=== PATIENT | male | born 1930 | race Caucasian/White ===

== ENCOUNTER 2016-10-16 06:11 | Day surgery (SDC) | payer OTHER ==
[~2016-10-16 06:11] MED LIST: ceFAZolin 2 GM/DEXTROSE 100 ML IV ONE
[2016-10-16] MEDS ORDERED: LR 1,000 ML IV ONE (06:30)
[2016-10-16] MEDS ORDERED: LIDOCAINE 1% 5 ML SDV ID PRN (06:30)
[2016-10-16] MEDS ORDERED: BUPIVACAINE 0.5% 30 ML SDV ONE (06:53)
[2016-10-16] MEDS ORDERED: MIDAZOLAM 2 MG/2 ML VIAL ONE (07:05)
[2016-10-16] MEDS ORDERED: fentaNYL 100 MCG/2 ML INJ ONE (07:21)
[2016-10-16] MEDS ORDERED: PROPOFOL 200 MG/20 ML VIAL ONE (07:24)
[2016-10-16] MEDS ORDERED: LABETALOL HCL 5 MG/ML 20 ML MDV ONE (07:28)
[2016-10-16] MEDS ORDERED: LIDOCAINE 1% 30 ML SDV ONE (07:35)
[2016-10-16] MEDS ORDERED: ONDANSETRON 4 MG/2 ML VIAL ONE (07:56)
--- NOTE | 2016-10-16 08:49 | GOP ---
DATE OF OPERATION: 10/16/2016 SURGEON: Mallory Tovar MD RECYCLING COORDINATOR: Fany Mclaughlin, SHIRAZ ANESTHESIA: Monitored anesthesia care with sedation. 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 PROCEDURE PERFORMED: Debridement of skin and soft tissue, left lower extremity, and wound VAC place ment. FINDINGS: Wound measures 9.5 x 5.5 x 1 cm. The tendon or bone were not exposed. SPECIMENS: None. ESTIMATED BLOOD LOSS: 20 cc. INDICATIONS: The patient is an 85-year-old man who fell. He had a large hematoma. This [facility]brid [facility], however, it was found that it tracked more extensively than anticipa hali. DESCRIPTION OF PROCEDURE: The patient was brought into the operating room, placed supine on the tab le, and monitored anesthesia care with sedation was performed. Left leg was prepped with Betadine a nd draped in the usual sterile fashion. I infiltrated the areas with 20 cc of 0.5% Marcaine mixed w ith 1% lidocaine. I excised all the nonviable tissue and I evacuated the hematoma. The wound measu red 9.5 x 5.5 x 1 cm. Hemostasis was achieved. A wound VAC was placed. He was awakened in the ope rating room and transferred to the PACU in stable condition. /[id number]/MODL
[2016-10-16] MEDS ORDERED: HYDROCODONE/APAP 5/325 TAB ONE (08:57)
== END 2016-10-16 10:20 | disposition home or self-care (01) ==
LOC: FPAT 06:11 → FSGY 10:20
PROVIDERS: ATTEND Surgery
PROC: 0JBP0ZZ Excision of Left Lower Leg Subcutaneous Tissue and Fascia, Open Approach (ICD-10-PCS; principal; 2016-10-16 07:15)
DX: S81.802A Unspecified open wound, left lower leg, initial encounter (principal); W19.XXXA Unspecified fall, initial encounter; W22.8XXA Striking against or struck by other objects, initial encounter
CPT/HCPCS: J0690; J2250; J2405; J2704; J3010; J3490

== ENCOUNTER 2016-10-18 17:41 | Emergency (ER) | payer OTHER ==
[2016-10-18 17:54] VITALS: BP 146/80; PULSE 79; RESP 18; TEMP 97.2; O2SAT 94
--- NOTE | 2016-10-18 18:01 | EDPHY ---
H & P Time Seen by Provider: 10/18/16 17:58 HPI/ROS: CHIEF COMPLAINT: Wound check on left leg. HISTORY OF PRESENT ILLNESS: The patient is an 85-[facility] patient. He had a mechanical vacuum pump on his left leg that stopped last night and he presents for wound reevaluation. He was told to keep the wound dry but noticed that it was wet and weeping. He initially received the wound when he tripped and fell at home. He denies fever. Past Medical/Surgical History: Bilateral hip replacements, leg leg wound I&D, lumbar surgery. 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 Smoking Status: Former smoker Physical Exam: General Appearance: Alert, pleasant Skin: Warm and dry, no erythema Extremities: Left lower extremity-there is an open wound on the lateral aspect of the lower leg with a dressing in place Vascular: pedal pulses 1+ Constitutional: Initial Vital Signs Temperature (C) 36.2 C 10/18/16 17:47 Heart Rate 79 10/18/16 17:47 Respiratory Rate 18 10/18/16 17:47 Blood Pressure 146/80 H 10/18/16 17:47 O2 Sat (%) 94 10/18/16 17:47 O2 Delivery Mode Room Air Allergies/Adverse Reactions: No Known Allergies Allergy (Verified 10/18/16 17:54) Home Medications: Medication Instructions Recorded Amlodipine Besylate 10/15/16 Aspirin 10/15/16 Flonase Nasal [place] 10/15/16 Herbals/Supplements -Info Only 10/15/16 Losartan Potassium 10/15/16 Simvastatin 10/15/16 Tamsulosin HCl 10/15/16 Medical Decision Making ED Course/Re-evaluation: The patient's wound was changed to a wet to dry dressing. He understands to follow up with the [facility] tomorrow. Departure - Departure Disposition: Home, Routine, Self-Care Clinical Impression: Visit for wound check Condition: Good Instructions: Acute Wound Care (ED) Additional Instructions: Call the wound clinic tomorrow to set up an appointment. Inform her you were a patient in the ER today and your wound vac has stopped working. Return to the emergency department if you experience any serious worsening of condition. Referrals: [facility] [Clinic] - As per Instructions Report Scribed for: Ruth Gutierrez Report Scribed by: Sarbjit Azevedo Date of Report: 10/18/16 Time of Report: 17:59 Physician Review and Approval Statement: 10/18/16 17:59 Portions of this note were transcribed by a medical transcription radiology. I personally performed a history, physical exam, medical decision making, and confirmed accuracy of information the transcribed note.
== END 2016-10-18 19:20 | disposition home or self-care (01) ==
DX: Z48.01 Encounter for change or removal of surgical wound dressing (principal); Z79.82 Long term (current) use of aspirin; Z87.891 Personal history of nicotine dependence

== ENCOUNTER 2016-12-25 10:37 | Inpatient (IN) | payer OTHER ==
[~2016-12-25 10:37] MED LIST changes: +BUPIVACAINE 0.5% 30 ML SDV ONE; +MINERAL OIL 10 ML VIAL TP ONE; +THROMBIN (BOVINE) 20,000 UNIT SPRAY TP ONE
[2016-12-25] MEDS ORDERED: LIDOCAINE 1% 2 ML INJ ONE (11:06)
[2016-12-25] MEDS ORDERED: CEFAZOLIN 2 GM/DEXTROSE/100 ML BAG IV ONE (11:06)
[2016-12-25] MEDS ORDERED: LIDOCAINE 1% 5 ML SDV ID PRN (12:17)
[2016-12-25] MEDS ORDERED: LR 1,000 ML IV ONE (12:17)
[2016-12-25] MEDS ORDERED: MIDAZOLAM 2 MG/2 ML VIAL ONE (12:38)
--- NOTE | 2016-12-25 12:38 | POSTOPPROG ---
Post Op Note Date of Operation: 12/25/16 Surgeon: Mallory Tovar Drapery Examiner: dipika Anesthesiologist: will Anesthesia: GET(General Endotracheal) Pre-op Diagnosis: Traumatic wound LLE Post-op Diagnosis: same Indication: 85yo M with LLE traumatic wound with delayed wound healing Procedure: STSG with wound vac placement Findings: wound measurements 7 x 5cm Inf/Abcess present in the surg proc area at time of surgery?: Yes Depth: Superfical (Skin SQ) EBL: Minimal Drains: Wound Vac
--- NOTE | 2016-12-25 12:39 | CPEKG ---
Heart Rate: 79 RR Interval: 759 P-R Interval: 204 QRSD Interval: 104 QT Interval: 384 QTC Interval: 441 P Moran: 49 QRS Moran: -41 T Wave Moran: 53 EKG Severity - ABNORMAL ECG - EKG Impression: SINUS RHYTHM EKG Impression: PAIRED ATRIAL PREMATURE COMPLEXES EKG Impression: LEFT AXIS DEVIATION EKG Impression: NONSPECIFIC T ABNORMALITIES, LATERAL LEADS Electronically Signed By: Avila Paulson 25-Dec-2016 16:26:30
[2016-12-25] MEDS ORDERED: fentaNYL 100 MCG/2 ML INJ ONE ×2 (12:42)
[2016-12-25] MEDS ORDERED: PROPOFOL 200 MG/20 ML VIAL ONE (12:43)
[2016-12-25] MEDS ORDERED: LIDOCAINE 2% 5 ML SDV ONE (12:44)
[2016-12-25] MEDS ORDERED: LABETALOL HCL 50 MG/10 ML SYR ONE (13:43)
--- NOTE | 2016-12-25 13:49 | GOP ---
[f rep st] OPERATIVE REPORT DATE OF OPERATION: 12/25/2016 SURGEON: Mallory Tovar MD REVENUE SETTLEMENTS ADMINISTRATOR: SHIRAZ Ojeda ANESTHESIA: General. ANESTHESIOLOGIST: Dr. Ramsey Blanchard PREOPERATIVE DIAGNOSIS: Traumatic left lower extremity wound. POSTOPERATIVE DIAGNOSIS: Traumatic left lower extremity wound. PROCEDURE PERFORMED: Debridement skin, soft tissue to the level of subcutaneous tissues measuring 7 x 5 x 0 cm, and split-thickness skin graft. FINDINGS: healthy tissue SPECIMENS: None. ESTIMATED BLOOD LOSS: 10 cc. INDICATIONS: The patient is an 85-year-old man who injured his leg. We have performed debridement and have been applying EpiFix. He is now ready for skin grafting. DESCRIPTION OF PROCEDURE: The patient was brought into the operating room, placed supine on the table, and general anesthesia was administered. His left lower leg was prepped and draped in the usual sterile fashion. I debrided the skin, soft tissue on his left lower extremity with a knife. It measured 7 x 5 x 0 cm. I then placed mineral oil on his left upper thigh, obtained a skin graft at 1:12,000th of an inch. I performed hand pie crusting and I placed this on the lower extremity wound. It was stapled into place. An epinephrine soaked sponge was placed on the donor site. After the skin graft was adhered by john, Adaptic Touch and a wound VAC was placed. Hemostasis was achieved on the donor site with electrocautery. Mepilex transfer and a Tegaderm was placed. He was awakened in the operating room, extubated, transferred to PACU in stable condition. /[id number]/MODL MTDD
[2016-12-25] MEDS ORDERED: hydrALAZINE 20 MG/ML VIAL ONE (14:13)
[2016-12-25] MEDS ORDERED: ACETAMINOPHEN 325 MG TAB PO PRN (16:45)
[2016-12-25] MEDS ORDERED: diphenhydrAMINE 25 MG CAP PO PRN (16:45)
[2016-12-25] MEDS ORDERED: ONDANSETRON DISINTEGRATING 4 MG TAB PO PRN (16:45)
[2016-12-25] MEDS ORDERED: ONDANSETRON 4 MG/2 ML VIAL IVP PRN (16:45)
[2016-12-25] MEDS ORDERED: HYDROmorphONE/DILAUDID 1 MG/ML SYR IVP PRN (16:46)
[2016-12-25] MEDS: HYDROCODONE/APAP 5/325 TAB PO PRN (19:56)
[2016-12-25] MEDS: FLUTICASONE NASAL 120 SPRAYS/16 GM MDI EACHNARE SCH (21:15)
[2016-12-25] MEDS: LATANOPROST 0.005% 2.5 ML OPHT DROPS EACHEYE SCH (21:15)
[2016-12-26] MEDS: HYDROCODONE/APAP 5/325 TAB PO PRN ×2 (02:01→20:25)
[2016-12-26] MEDS: LOSARTAN POTASSIUM 50 MG TAB PO SCH (08:24)
[2016-12-26] MEDS: ATORVASTATIN CALCIUM 10 MG TAB PO SCH (08:25)
[2016-12-26] MEDS: TAMSULOSIN HCL 0.4 MG CAP PO SCH (08:25)
[2016-12-26] MEDS: FLUTICASONE NASAL 120 SPRAYS/16 GM MDI EACHNARE SCH ×2 (08:25→23:08)
[2016-12-26] MEDS: amLODIPine BESYLATE 5 MG TAB PO SCH (08:25)
--- NOTE | 2016-12-26 10:11 | SOAPPROG ---
SOAP Progress Note Assessment/Plan: Assessment: POD#1 s/p STSG LLE wound Pain controlled change L thigh dressing PRN wound vac intact to suction - switched over to home vac f/u 1 week for wound vac change D/C home today with 1 week keflex. seen with Dr. Tovar S: no pain of donor site. no complaints this morning O: sitting up in chair eating breakfast no increased wob L upper thigh dressing intact LLE wound vac to suction - surrounding erythema improved 12/26/16 10:11 Objective: Vital Signs Temp Pulse Resp BP Pulse Ox 36.7 C 79 18 148/76 H 97 12/26/16 07:16 12/26/16 07:16 12/26/16 07:16 12/26/16 07:16 12/26/16 07:16 12/25/16 12/26/16 12/27/16 05:59 05:59 05:59 Intake Total 1611 Output Total 105 Balance 1506 ICD10 Worksheet Patient Problems: Problems Problem Status Onset Traumatic open wound of left lower leg Acute - ICD10 Problem Qualifiers (1) Traumatic open wound of left lower leg Qualifiers: Encounter type: E
[2016-12-26] MEDS: CEPHALEXIN 500 MG CAP PO SCH ×2 (10:32→17:05)
[2016-12-26] MEDS: LATANOPROST 0.005% 2.5 ML OPHT DROPS EACHEYE SCH (23:08)
[2016-12-27] MEDS: HYDROCODONE/APAP 5/325 TAB PO PRN (01:25)
[2016-12-27] MEDS: CEPHALEXIN 500 MG CAP PO SCH ×4 (01:25→16:12)
[2016-12-27] MEDS: LOSARTAN POTASSIUM 50 MG TAB PO SCH (09:00)
[2016-12-27] MEDS: TAMSULOSIN HCL 0.4 MG CAP PO SCH (09:00)
[2016-12-27] MEDS: amLODIPine BESYLATE 5 MG TAB PO SCH (09:00)
[2016-12-27] MEDS: ATORVASTATIN CALCIUM 10 MG TAB PO SCH (09:00)
[2016-12-27] MEDS: FLUTICASONE NASAL 120 SPRAYS/16 GM MDI EACHNARE SCH (09:03)
[2016-12-27 09:25] VITALS: BP 154/94; PULSE 61; RESP 20; TEMP 98.6; O2SAT 96
--- NOTE | 2016-12-27 10:38 | PDIAF ---
- Diagnosis Diagnosis: LLE traumatic wound Code Status: Full Code - Medication Management Discharge Medications: Medications to Continue on Transfer Aspirin [Aspirin 81mg (*)] 81 mg PO DAILY 10/15/16 [Last Taken 10/15/16] Fluticasone Nasal [Flonase Nasal [place]] 1 sprays [place] BID 10/15/16 [Last Taken 10/15/16] Herbals/Supplements -Info Only 1 ea PO DAILY 10/15/16 [Last Taken 10/15/16] Losartan Potassium [Cozaar 50 mg (*)] 50 mg PO DAILY 10/15/16 [Last Taken ] Simvastatin [Zocor] 20 mg PO DAILY 10/15/16 [Last Taken 10/15/16] Tamsulosin HCl [Flomax 0.4 MG (*)] 0.4 mg PO DAILY 10/15/16 [Last Taken 10/15/16 ] amLODIPine BESYLATE [Norvasc 5 mg (*)] 5 mg PO DAILY 10/15/16 [Last Taken ] Latanoprost 0.005% [Xalatan 0.005% (*)] 1 drops EACHEYE HS 12/17/16 [Last Taken Unknown] Cephalexin [Keflex (*)] 500 mg PO Q6HRS #28 cap 12/26/16 [Last Taken Unknown] Hydrocodone/APAP 5/325 [[place]rockett 5/325 (*)] 2 tab PO Q4 PRN #15 tab 12/26/16 [Last Taken Unknown] Long-Term Antibiotics: kelfex x 1 week Discharge Medications: Refer to the Discharge Home Medication list for PRN reason. PICC Care - Routine: N/A - Orders Services needed: Home Care, Registered Nurse Home Care Face to Face: I certify that this patient was under my care and that I had the required [id number] encounter meeting the encounter requirements on the discharge day. My findings support the fact that the patient is homebound as defined in CMS Chapter 7 Medicare Benefits Manual 30.1.1, The condition of the patient is such that there exists a normal inability to leave home and consequently, leaving home would require a considerable and taxing effort. Diet Recommendation: no restrictions on diet Diet Texture: Regular Texture Diet Wound Care Instructions: please check to make sure wound vac is to suction. Change left upper thigh dressing as needed - mepilex transfer and tegaderm - Follow Up Care Current Providers and Referrals: JOSAFAT SAMSON [Primary Care Provider] - Mallory Tovar MD [Medical Doctor] - 01/01/17
--- NOTE | 2016-12-27 10:40 | SOAPPROG ---
SOAP Progress Note Assessment/Plan: Assessment: POD#2 s/p STSG LLE wound Pain controlled change L thigh dressing PRN wound vac intact to suction - [facility] new [facility] f/u 1 week for wound vac change D/C home today with 1 week keflex. S: no pain of donor site. no complaints this morning. anxious to go home O: sitting up in chair accompanied by son and no increased wob L upper thigh dressing with mild staining LLE wound vac to suction - surrounding erythema improved Objective: Vital Signs Temp Pulse Resp BP Pulse Ox 37.0 C 61 20 154/94 H 96 12/27/16 08:00 12/27/16 08:00 12/27/16 08:00 12/27/16 08:00 12/27/16 08:00 12/26/16 12/27/16 12/28/16 05:59 05:59 05:59 Intake Total 1611 Output Total 105 Balance 1506 ICD10 Worksheet Patient Problems: Problems Problem Status Onset Traumatic open wound of left lower leg Acute - ICD10 Problem Qualifiers (1) Traumatic open wound of left lower leg Qualifiers: Encounter type: E
--- NOTE | 2016-12-27 13:20 | GDS ---
[f rep st] DISCHARGE SUMMARY ADMITTING DIAGNOSIS: Left lower extremity traumatic wound. SECONDARY DIAGNOSIS: Hypertension. REASON FOR ADMISSION: The patient is an 85-year-old man who developed a traumatic hematoma of his l eft lower extremity and underwent operative debridement. The wound continued to have delayed wound healing and he was taken to the operating room for split-thickness skin graft. He required hospital admission due to difficulties with the home wound VAC. HOSPITAL COURSE: He was taken to the operating room by Dr. Mallory Tovar on 12/25/2016 for a split-th ickness skin graft to the left lower extremity. A wound VAC was placed. He was ready for discharge on postoperative day #1. However, there were unforeseen circumstances wi th the home wound VAC in which it did not hold a charge, despite having been charged for an extended period of time. The wound VAC company was contacted and agreed to send a new wound VAC right away. Postoperative day #2, we are still waiting for the wound VAC, but we anticipate this to be delivered today and for him to be discharged home later this morning. His pain is well controlled. He is am bulating independently. He is tolerating a regular diet. CONDITION: He is being discharged home with home care, in stable condition. Pain controlled with o ral pain medication. Tolerating regular diet. Ambulating independently. DISCHARGE MEDICATIONS: He was provided a prescription for Keflex as well as [place]. Instructed to r esume home medications. Please see EMR for further details. DISCHARGE INSTRUCTIONS: The wound VAC will remain in place for 1 week uninterrupted. The left uppe r thigh donor site dressing may be changed as needed. He will have home care to check in on him barbara russell for wound care needs. FOLLOWUP ON DISCHARGE: He will follow up with Dr. Tovar on , 12/31/2016, for a wound check. He and his family understand to call our office with any worsening symptoms, questions or concerns . /[id number]/MODL
== END 2016-12-27 16:44 | disposition home health service (06) | DRG 578 ==
LOC: F3E 10:37 → OBSVTOIN 12-26 15:54
PROVIDERS: ADMIT Surgery; ATTEND Surgery
PROC: 0HBJXZZ Excision of Left Upper Leg Skin, External Approach (ICD-10-PCS; principal; 2016-12-25 12:15)
PROC: 0HRLX74 Replacement of Left Lower Leg Skin with Autologous Tissue Substitute, Partial Thickness, External Approach (ICD-10-PCS; principal; 2016-12-25 12:15)
DX: S81.802A Unspecified open wound, left lower leg, initial encounter (principal); I10 Essential (primary) hypertension; W01.118A Fall on same level from slipping, tripping and stumbling with subsequent striking against other sharp object, initial encounter
CPT/HCPCS: J0171; J0360; J0690; J2250; J2704; J3010